=== PATIENT | male | born 1990 | race Caucasian/White ===

== ENCOUNTER 2016-10-27 23:53 | Emergency (ER) | payer MEDICAID ==
[~2016-10-27] VITALS: Ht 185.4 cm; Wt 68.0 kg
[2016-10-27 23:55] VITALS: BP_SYST 120
--- NOTE | 2016-10-27 23:55 | NUR ---
Patient to ER bed 8 to gown for evaluation. Side rails up.
--- NOTE | 2016-10-28 00:01 | NUR ---
Patient is stable in bed. States that he ate bad chicken last night since then had nausea, abdominal pain, and diarrhea. Abdomen is soft and round. Pain of 5/10. Denies vomiting. No other injuries/complaints per patient or as noted
--- NOTE | 2016-10-28 01:44 | NUR ---
ER Dr. Weeks at bedside examining patient.
[2016-10-28] MEDS ORDERED: ONDANSETRON 4 MG ODT TAB PO ONE (01:45)
[2016-10-28 02:00] VITALS: BP_SYST 107
--- NOTE | 2016-10-28 02:00 | NUR ---
Patient given written and verbal discharge instructions and verbalizes understanding. ER MD discussed with patient the results and treatment provided. Patient in stable condition. ID arm band removed. Rx of imodium and zofran given. Patient educated on pain management and to follow up with PMD 4-5 days. Pain Scale 0/10 Opportunity for questions provided and answered.
== END 2016-10-28 02:00 | disposition home or self-care (01) ==
LOC: SED 23:53
DX: R19.7 Diarrhea, unspecified (principal); R11.0 Nausea; R10.13 Epigastric pain
CPT/HCPCS: 99283; Q0162

== ENCOUNTER 2016-12-09 08:22 | Emergency (ER) | payer MEDICAID ==
[~2016-12-09] VITALS: Ht 188 cm; Wt 70.8 kg
[2016-12-09 08:33] VITALS: BP 145/93; PULSE 78; RESP 16; TEMP 97.4; O2SAT 98
--- NOTE | 2016-12-09 08:40 | NUR ---
Patient to ER bed 7 to gown for evaluation. Side rails up. Report given to Alycia SPICER.
--- NOTE | 2016-12-09 08:49 | NUR ---
Dr. Blake at the bedside evaluating Pt. Currently awaiting new orders.
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
[2016-12-09 08:53] LABS: BILIRUBIN,URINE NEGATIVE (NEGATIVE); BLOOD, URINE NEGATIVE (NEGATIVE); CLARITY/URINE CLEAR (CLEAR); COLOR,URINE YELLOW (YELLOW); GLUCOSE,URINE NEGATIVE (NEGATIVE); KETONES,URINE NEGATIVE (NEGATIVE); LEUKOCYTE ESTERASE ,URINE NEGATIVE (NEGATIVE); NITRITE, URINE NEGATIVE (NEGATIVE); PROTEIN URINE NEGATIVE (NEGATIVE)
[2016-12-09 08:57] LABS: BASOPHILS % (AUTO) 0.3 % (0.0-2.0); EOSINOPHILS # (AUTO) 0.2 K/uL (0.0-0.4); EOSINOPHILS % (AUTO) 2.8 % (0.0-4.0); HEMATOCRIT 47.1 % (36-54); HEMOGLOBIN 15.1 g/dL (14.0-18.0); LYMPHOCYTES # (AUTO) 1.9 K/uL (1.0-5.5); LYMPHOCYTES % (AUTO) 24.8 % (20.5-51.5); MEAN CORPUSCULAR HEMOGLOBIN 26 pg (27-31); MEAN CORPUSCULAR HGB CONC 32 % (32-36); MEAN CORPUSCULAR VOLUME 82 fL (79.0-98.0); MONOCYTES # (AUTO) 0.6 K/uL (0.0-1.0); MONOCYTES % (AUTO) 7.9 % (1.7-9.3); NEUTROPHILS # (AUTO) 4.9 K/uL (1.8-7.7); NEUTROPHILS % (AUTO) 64.2 % (40.0-70.0); PLATELET COUNT (AUTO) 225 K/uL (130-430); RED BLOOD CELL COUNT(AUTO) 5.72 MIL/uL (4.2-6.2); RED CELL DISTRIBUTION WIDTH 12.1 % (9.0-15.0); WHITE BLOOD COUNT (AUTO) 7.6 K/uL (4.8-10.8)
[2016-12-09 09:05] LABS: BARBITURATE, URINE NEGATIVE (NEG <=200); BENZODIAZEPINE, URINE NEGATIVE (NEG <=150); CANNABINOID, URINE NEGATIVE (NEG <=50); COCAINE, URINE POSITIVE (NEG <=150); METHAMPHETAMINES SCREEN,URINE NEGATIVE (NEG <=500); OPIATE, URINE NEGATIVE (NEG <=100); PHENCYCLIDINE SCREEN,URINE NEGATIVE (NEG <=25); UR TRICYCLIC ANTIDEPRESSANTS NEGATIVE (NEG <=300); URINE AMPHETAMINE POSITIVE (NEG <=500); URINE METHADONE NEGATIVE (NEG <=200); URINE OXYCODONE SCREEN NEGATIVE (NEG <=100); URINE PROPOXYPHENE SCREEN NEGATIVE (NEG <=300)
[2016-12-09 09:08] LABS: ANION GAP 7 (5-15); CALCIUM 9.3 mg/dL (8.4-11.0); CHLORIDE 101 mmol/L (98-107); CREATININE 0.85 mg/dL (0.55-1.30); GFR AFRICAN AMERICAN 141 mL/min (>90); GLUCOSE 104 mg/dL (70-99); POTASSIUM 3.7 mmol/L (3.5-5.1); SODIUM SERUM 136 mmol/L (136-145); UREA NITROGEN, BLOOD 10 mg/dL (8-21)
[2016-12-09 09:13] LABS: TOTAL BILIRUBIN 0.9 mg/dL (0.0-1.0)
[2016-12-09 09:15] LABS: ALANINE AMINOTRANSFERASE 27 U/L (12-78); ALBUMIN 4.7 g/dL (3.4-4.8); ALCOHOL, BLOOD 3 mg/dL (<10); ASPARTATE AMINOTRANSFERASE 16 U/L (10-37); TOTAL PROTEIN, SERUM 8.6 g/dL (6.4-8.3)
--- NOTE | 2016-12-09 09:15 | NUR ---
Dr. Blake at the bedside discussing plan of care. Currently awaiting orders.
[2016-12-09 09:16] VITALS: BP 92/52; PULSE 72; RESP 14; TEMP 98.9; O2SAT 99
[2016-12-09 09:19] LABS: SALICYLATE < 1 mg/dL (3-30)
--- NOTE | 2016-12-09 09:19 | NUR ---
Patient given written and verbal discharge instructions and verbalizes understanding. ER MD discussed with patient the results and treatment provided. Patient in stable condition. ID arm band removed. IV catheter removed intact and dressing applied, no active bleeding. Patient educated on pain management and to follow up with PMD. Pain Scale 3/10. Opportunity for questions provided and answered.
[2016-12-09 09:30] LABS: ACETAMINOPHEN < 1 ug/mL (1-30)
== END 2016-12-09 09:16 | disposition home or self-care (01) ==
LOC: SED 08:22
DX: F14.10 Cocaine abuse, uncomplicated (principal); R07.89 Other chest pain
CPT/HCPCS: 36415; 71010; 80053; 80307; 81003; 84484; 85025; 93005; 99285; G0480; G0481; G0482

== ENCOUNTER 2018-01-09 10:40 | Emergency (ER) | payer MEDICAID ==
[~2018-01-09] VITALS: Ht 188 cm; Wt 72.6 kg
[2018-01-09 10:46] VITALS: BP_SYST 166
--- NOTE | 2018-01-09 10:49 | NUR ---
Pt placed in bed 7
--- NOTE | 2018-01-09 10:55 | NUR ---
Pt complains of right flank pain that radiates to lower abdomen for the past 5 days, states "feels like something is pushing out of back." Denies n/v, diarrhea or fever. No other injuries/complaints per pt or noted.
--- NOTE | 2018-01-09 10:57 | NUR ---
ER at bedside examining patient.
--- NOTE | 2018-01-09 11:07 | NUR ---
Pt went to radiology in stable condition
--- NOTE | 2018-01-09 11:11 | NUR ---
Pt returned from radiology in stable condition
[2018-01-09 11:13] LABS: BILIRUBIN,URINE NEGATIVE (NEGATIVE); CLARITY/URINE CLEAR (CLEAR); COLOR,URINE YELLOW (YELLOW); GLUCOSE,URINE NEGATIVE (NEGATIVE); KETONES,URINE NEGATIVE (NEGATIVE); LEUKOCYTE ESTERASE ,URINE NEGATIVE (NEGATIVE); NITRITE, URINE NEGATIVE (NEGATIVE); PROTEIN URINE NEGATIVE (NEGATIVE); UROBILINOGEN,URINE 0.2 (0.2-1.0)
[2018-01-09 11:14] LABS: BLOOD, URINE TRACE (NEGATIVE)
[2018-01-09 11:19] LABS: BACTERIA,URINE RARE /HPF (None Seen); RBC,URINE 0-3 /HPF (0-3); WBC,URINE NONE SEEN /HPF (0-3)
[2018-01-09 11:20] LABS: MUCUS,URINE 1+ /LPF (None Seen)
[2018-01-09 11:30] LABS: BASOPHILS # (AUTO) 0.1 K/uL (0.0-0.2); BASOPHILS % (AUTO) 1.1 % (0.0-2.0); EOSINOPHILS # (AUTO) 0.3 K/uL (0.0-0.4); EOSINOPHILS % (AUTO) 2.7 % (0.0-4.0); HEMOGLOBIN 15.9 g/dL (14.0-18.0); LYMPHOCYTES # (AUTO) 2.8 K/uL (1.0-5.5); LYMPHOCYTES % (AUTO) 22.1 % (20.5-51.5); MEAN CORPUSCULAR HEMOGLOBIN 27 pg (27-31); MEAN CORPUSCULAR HGB CONC 33 % (32-36); MEAN CORPUSCULAR VOLUME 82 fL (79.0-98.0); MONOCYTES # (AUTO) 0.9 K/uL (0.0-1.0); MONOCYTES % (AUTO) 6.7 % (1.7-9.3); NEUTROPHILS # (AUTO) 8.6 K/uL (1.8-7.7); NEUTROPHILS % (AUTO) 67.4 % (40.0-70.0); PLATELET COUNT (AUTO) 245 K/uL (130-430); RED BLOOD CELL COUNT(AUTO) 5.86 MIL/uL (4.2-6.2); WHITE BLOOD COUNT (AUTO) 12.7 K/uL (4.8-10.8)
--- NOTE | 2018-01-09 11:34 | NUR ---
Assumed care of pt. Received report from Archana SPICER. Pt states R flank pain at 10/10, nontender to touch. Pt states he does not want any pain medication at this time.
[2018-01-09 11:42] LABS: CALCIUM 9.5 mg/dL (8.4-11.0); CREATININE 0.85 mg/dL (0.55-1.30); POTASSIUM 3.9 mmol/L (3.5-5.1)
[2018-01-09 11:46] LABS: ALBUMIN 4.5 g/dL (3.4-4.8); TOTAL BILIRUBIN 0.5 mg/dL (0.0-1.0)
[2018-01-09 11:50] LABS: BARBITURATE, URINE NEGATIVE (NEG <=200); BENZODIAZEPINE, URINE NEGATIVE (NEG <=150); CANNABINOID, URINE NEGATIVE (NEG <=50); COCAINE, URINE NEGATIVE (NEG <=150); METHAMPHETAMINES SCREEN,URINE NEGATIVE (NEG <=500); OPIATE, URINE NEGATIVE (NEG <=100); PHENCYCLIDINE SCREEN,URINE NEGATIVE (NEG <=25); UR TRICYCLIC ANTIDEPRESSANTS NEGATIVE (NEG <=300); URINE AMPHETAMINE NEGATIVE (NEG <=500); URINE METHADONE NEGATIVE (NEG <=200); URINE OXYCODONE SCREEN NEGATIVE (NEG <=100); URINE PROPOXYPHENE SCREEN NEGATIVE (NEG <=300)
[2018-01-09 12:19] VITALS: BP_SYST 143
--- NOTE | 2018-01-09 12:19 | NUR ---
Patient given written and verbal discharge instructions and verbalizes understanding. ER MD discussed with patient the results and treatment provided. Patient in stable condition. ID arm band removed. Rx of lactulose given. Patient educated on pain management and to follow up with PMD. Pain Scale 3. Opportunity for questions provided and answered.
== END 2018-01-09 12:19 | disposition home or self-care (01) ==
LOC: SED 10:40
DX: K59.00 Constipation, unspecified (principal); J45.909 Unspecified asthma, uncomplicated
CPT/HCPCS: 36415; 74021; 80053; 80307; 81000-TC; 83690-TC; 85025; 99285

== ENCOUNTER 2020-05-24 05:03 | Emergency (ER) | payer MEDICAID ==
[~2020-05-24] VITALS: Ht 188 cm; Wt 74.8 kg
[2020-05-24 05:10] VITALS: BP_SYST 129
--- NOTE | 2020-05-24 05:12 | NUR ---
Patient to ER bed 8 to gown for evaluation. Side rails up.
--- NOTE | 2020-05-24 05:14 | NUR ---
Patient came to ER with family. C/O abdominal pain x today. Patient had abdominal pain , diarrhea since midnight. A/O,X4, abdominal pain, nausea, diarrhea, pain rate 10/10.
--- NOTE | 2020-05-24 05:15 | NUR ---
ER at bedside examining patient.
[2020-05-24] MEDS ORDERED: KETOROLAC TROMETHAMINE 30 MG VIAL IVP ONE (05:30)
[2020-05-24] MEDS ORDERED: ONDANSETRON HCL 4 MG/2 ML VIAL IVP ONE (05:30)
[2020-05-24] MEDS ORDERED: NACL 0.9% 1,000 ML IV ONE ×2 (05:30→06:30)
[2020-05-24] MEDS ORDERED: DIPHENOXYLATE HCL/ATROP SULF 2.5 MG TAB PO ONE (05:30)
--- NOTE | 2020-05-24 05:30 | NUR ---
# 22 gauge angiocath placed to LAC. Use of asceptic technique. Opsite placed over site. Blood return noted. Blood for lab drawn from site. Flushed with 10 cc of normal saline. No evidence of infiltration noted. Patient tolerated well.
[2020-05-24 05:50] LABS: BILIRUBIN,URINE 1+ (NEGATIVE); BLOOD, URINE 1+ (NEGATIVE); CLARITY/URINE CLEAR (CLEAR); COLOR,URINE YELLOW (YELLOW); GLUCOSE,URINE NEGATIVE (NEGATIVE); KETONES,URINE NEGATIVE (NEGATIVE); LEUKOCYTE ESTERASE ,URINE NEGATIVE (NEGATIVE); NITRITE, URINE NEGATIVE (NEGATIVE); PROTEIN URINE 1+ (NEGATIVE); UROBILINOGEN,URINE 0.2 (0.2-1.0)
[2020-05-24 05:52] LABS: WHITE BLOOD COUNT (AUTO) 7.8 K/uL (4.8-10.8)
[2020-05-24 05:54] LABS: BACTERIA,URINE FEW /HPF (None Seen); WBC,URINE 0-3 /HPF (0-3)
[2020-05-24 05:56] LABS: BASOPHILS % (AUTO) 0.5 % (0.0-2.0); HEMATOCRIT 47.2 % (36-54); HEMOGLOBIN 15.9 g/dL (14.0-18.0); LYMPHOCYTES # (AUTO) 0.6 K/uL (1.0-5.5); LYMPHOCYTES % (AUTO) 7.1 % (20.5-51.5); MEAN CORPUSCULAR HEMOGLOBIN 28 pg (27-31); MEAN CORPUSCULAR HGB CONC 34 % (32-36); MEAN CORPUSCULAR VOLUME 82 fL (79.0-98.0); MONOCYTES # (AUTO) 0.6 K/uL (0.0-1.0); NEUTROPHILS # (AUTO) 6.7 K/uL (1.8-7.7); NEUTROPHILS % (AUTO) 85.4 % (40.0-70.0); PLATELET COUNT (AUTO) 188 K/uL (130-430); RED BLOOD CELL COUNT(AUTO) 5.77 MIL/uL (4.2-6.2); RED CELL DISTRIBUTION WIDTH 13.4 % (9.0-15.0)
[2020-05-24 06:03] LABS: CALCIUM 8.6 mg/dL (8.4-11.0); CREATININE 0.96 mg/dL (0.55-1.30); POTASSIUM 3.5 mmol/L (3.5-5.1)
[2020-05-24 06:09] LABS: ALBUMIN 4.4 g/dL (3.4-4.8); TOTAL BILIRUBIN 0.5 mg/dL (0.0-1.0)
--- NOTE | 2020-05-24 06:32 | NUR ---
Provided crakers, water as request, no vomitting.
--- NOTE | 2020-05-24 06:41 | NUR ---
Patient resting quietly. No acute distress noted. Vital signs within normal range.
--- NOTE | 2020-05-24 07:48 | NUR ---
Pt asleep, VSS
[2020-05-24 07:54] VITALS: BP_SYST 116
--- NOTE | 2020-05-24 07:54 | NUR ---
Patient given written and verbal discharge instructions and verbalizes understanding. ER MD discussed with patient the results and treatment provided. Patient in stable condition. ID arm band removed. IV catheter removed intact and dressing applied, no active bleeding. Rx of Zofran given. Patient educated on pain management and to follow up with PMD. Pain Scale 0/10. Opportunity for questions provided and answered. Medication side effect fact sheet provided.
== END 2020-05-24 07:54 | disposition home or self-care (01) ==
LOC: SED 05:03
DX: T62.8X1A Toxic effect of other specified noxious substances eaten as food, accidental (unintentional), initial encounter (principal); J45.909 Unspecified asthma, uncomplicated; Y92.89 Other specified places as the place of occurrence of the external cause
CPT/HCPCS: 36415; 80053; 81000; 85025; 96361; 96374; 96375; 99284; J1885; J2405; J7030

== ENCOUNTER 2020-06-03 12:08 | Emergency (ER) | payer MEDICAID ==
[~2020-06-03] VITALS: Ht 188 cm; Wt 73.5 kg
[2020-06-03 12:08] VITALS: BP_SYST 113
[2020-06-03] MEDS ORDERED: METOCLOPRAMIDE HCL 10 MG/2 ML VIAL IVP ONE (12:30)
[2020-06-03] MEDS ORDERED: NACL 0.9% 1,000 ML IV ONE (12:30)
[2020-06-03 12:43] LABS: BASOPHILS # (AUTO) 0.1 K/uL (0.0-0.2); BASOPHILS % (AUTO) 1.1 % (0.0-2.0); EOSINOPHILS # (AUTO) 0.4 K/uL (0.0-0.4); EOSINOPHILS % (AUTO) 4.4 % (0.0-4.0); HEMATOCRIT 46.5 % (36-54); HEMOGLOBIN 15.4 g/dL (14.0-18.0); LYMPHOCYTES # (AUTO) 3.3 K/uL (1.0-5.5); LYMPHOCYTES % (AUTO) 39.2 % (20.5-51.5); MEAN CORPUSCULAR HEMOGLOBIN 27 pg (27-31); MEAN CORPUSCULAR HGB CONC 33 % (32-36); MEAN CORPUSCULAR VOLUME 82 fL (79.0-98.0); MONOCYTES # (AUTO) 0.9 K/uL (0.0-1.0); MONOCYTES % (AUTO) 10.6 % (1.7-9.3); NEUTROPHILS # (AUTO) 3.7 K/uL (1.8-7.7); NEUTROPHILS % (AUTO) 44.7 % (40.0-70.0); PLATELET COUNT (AUTO) 270 K/uL (130-430); RED BLOOD CELL COUNT(AUTO) 5.64 MIL/uL (4.2-6.2); RED CELL DISTRIBUTION WIDTH 13.1 % (9.0-15.0); WHITE BLOOD COUNT (AUTO) 8.3 K/uL (4.8-10.8)
[2020-06-03 12:51] LABS: CALCIUM 8.4 mg/dL (8.4-11.0); CREATININE 0.98 mg/dL (0.55-1.30); POTASSIUM 3.2 mmol/L (3.5-5.1)
[2020-06-03 12:57] LABS: ALBUMIN 4.1 g/dL (3.4-4.8); TOTAL BILIRUBIN 0.6 mg/dL (0.0-1.0)
[2020-06-03] MEDS ORDERED: DIPHENHYDRAMINE INJ 50 MG/ML VIAL IVP ONE (13:00)
[2020-06-03] MEDS ORDERED: POTASSIUM CHLORIDE 20 MEQ/PKT PACKET PO ONE (15:00)
[2020-06-03 15:22] VITALS: BP_SYST 113
== END 2020-06-03 15:22 | disposition home or self-care (01) ==
LOC: SED 12:08
DX: R19.7 Diarrhea, unspecified (principal); R11.2 Nausea with vomiting, unspecified; J45.909 Unspecified asthma, uncomplicated
CPT/HCPCS: 36415; 74177; 76376; 80053; 81002; 83690; 85025; 86701; 86702; 93005; 96374; 96375; 99285; J7030

== ENCOUNTER 2021-06-25 12:44 | Emergency (ER) | payer OTHER, MEDICAID ==
[~2021-06-25] VITALS: Ht 188 cm; Wt 72.6 kg
--- NOTE | 2021-06-25 12:49 | NUR ---
Patient to ER bed 07 to gown for evaluation. Side rails up.
[2021-06-25 12:55] VITALS: BP_SYST 114
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
[2021-06-25 13:02] VITALS: BP_SYST 114
--- NOTE | 2021-06-25 13:10 | NUR ---
Dr Hernadez evaluating patient at bedside
[2021-06-25] MEDS ORDERED: NAPR-688 PO (13:22)
--- NOTE | 2021-06-25 13:35 | NUR ---
Patient given written and verbal discharge instructions and verbalizes understanding. ER MD discussed with patient the results and treatment provided. Patient in stable condition. ID arm band removed. Rx of Naproxen given. Patient educated on pain management and to follow up with PMD. Pain Scale 2/10 . Opportunity for questions provided and answered. Medication side effect fact sheet provided.
== END 2021-06-25 13:34 | disposition home or self-care (01) ==
LOC: SED 12:44
DX: S09.90XA Unspecified injury of head, initial encounter (principal); M54.6 Pain in thoracic spine; J45.909 Unspecified asthma, uncomplicated; Z79.899 Other long term (current) drug therapy; V49.49XA Driver injured in collision with other motor vehicles in traffic accident, initial encounter; Y93.89 Activity, other specified; Y92.89 Other specified places as the place of occurrence of the external cause; Y99.8 Other external cause status
CPT/HCPCS: 99282

== ENCOUNTER 2021-12-06 17:57 | Emergency (ER) | payer MEDICAID ==
[~2021-12-06] VITALS: Ht 188 cm; Wt 74.4 kg
[~2021-12-06 17:57] MED LIST: NAPR-688 PO
[2021-12-06 18:00] VITALS: BP_SYST 123
[2021-12-06] MEDS ORDERED: NACL 0.9% 1,000 ML IV ONE (18:15)
[2021-12-06 18:45] LABS: CLARITY/URINE CLEAR (CLEAR); COLOR,URINE YELLOW (YELLOW); GLUCOSE,URINE NEGATIVE (NEGATIVE); KETONES,URINE TRACE (NEGATIVE); LEUKOCYTE ESTERASE ,URINE NEGATIVE (NEGATIVE); PROTEIN URINE TRACE (NEGATIVE); UROBILINOGEN,URINE 0.2 (0.2-1.0)
[2021-12-06 18:54] LABS: BASOPHILS % (AUTO) 0.6 % (0.0-2.0); EOSINOPHILS # (AUTO) 0.2 K/uL (0.0-0.4); EOSINOPHILS % (AUTO) 4.6 % (0.0-4.0); HEMATOCRIT 43.9 % (36-54); HEMOGLOBIN 14.8 g/dL (14.0-18.0); LYMPHOCYTES # (AUTO) 1.3 K/uL (1.0-5.5); LYMPHOCYTES % (AUTO) 33.3 % (20.5-51.5); MEAN CORPUSCULAR HEMOGLOBIN 28 pg (27-31); MEAN CORPUSCULAR HGB CONC 34 % (32-36); MEAN CORPUSCULAR VOLUME 82 fL (79.0-98.0); MONOCYTES # (AUTO) 0.6 K/uL (0.0-1.0); MONOCYTES % (AUTO) 14.7 % (1.7-9.3); NEUTROPHILS # (AUTO) 1.8 K/uL (1.8-7.7); NEUTROPHILS % (AUTO) 46.8 % (40.0-70.0); PLATELET COUNT (AUTO) 194 K/uL (130-430); RED BLOOD CELL COUNT(AUTO) 5.33 MIL/uL (4.2-6.2); RED CELL DISTRIBUTION WIDTH 13.6 % (9.0-15.0); WHITE BLOOD COUNT (AUTO) 3.9 K/uL (4.8-10.8)
[2021-12-06 19:01] LABS: CREATININE 1.01 mg/dL (0.55-1.30); POTASSIUM 3.5 mmol/L (3.5-5.1)
[2021-12-06 19:06] LABS: BLOOD, URINE TRACE (NEGATIVE); NITRITE, URINE NEGATIVE (NEGATIVE)
[2021-12-06 19:07] LABS: BILIRUBIN,URINE 1+ (NEGATIVE)
[2021-12-06 19:08] LABS: ALBUMIN 3.8 g/dL (3.4-4.8); TOTAL BILIRUBIN 0.5 mg/dL (0.0-1.0)
[2021-12-06 19:09] LABS: BACTERIA,URINE FEW /HPF (None Seen); MUCUS,URINE 2+ /LPF (None Seen); RBC,URINE 0-3 /HPF (0-3); WBC,URINE NONE SEEN /HPF (0-3)
[2021-12-06] MEDS ORDERED: LOM2.5 PO (19:55)
[2021-12-06] MEDS ORDERED: CIPR500T5 PO (19:55)
[2021-12-06] MEDS ORDERED: DIPHENOXYLATE HCL/ATROP SULF 2.5 MG TAB PO ONE (20:15)
[2021-12-06 20:42] VITALS: BP_SYST 109
== END 2021-12-06 20:42 | disposition home or self-care (01) ==
LOC: SED 17:57
DX: K52.9 Noninfective gastroenteritis and colitis, unspecified (principal); Z79.899 Other long term (current) drug therapy; Z20.822 Contact with and (suspected) exposure to COVID-19
CPT/HCPCS: 36415; 80053; 81000; 83690; 85025; 87426; 96360; 99283; J7030

== ENCOUNTER 2023-09-19 05:12 | Emergency (ER) | payer MEDICAID ==
[~2023-09-19] VITALS: Ht 188 cm; Wt 76.2 kg
[~2023-09-19 05:12] MED LIST changes: +CIPR500T5 PO; +LOM2.5 PO
[2023-09-19 05:31] VITALS: BP_SYST 124; PULSE 75; RESP 16; TEMP 97.8; O2SAT 99
[2023-09-19] MEDS ORDERED: IVER3TAB PO (05:48)
[2023-09-19 05:58] VITALS: BP_SYST 124; PULSE 75; RESP 16; TEMP 97.8; O2SAT 99
== END 2023-09-19 05:55 | disposition home or self-care (01) ==
LOC: SED 05:12
DX: B86 Scabies (principal); L29.9 Pruritus, unspecified; J45.909 Unspecified asthma, uncomplicated; Z79.899 Other long term (current) drug therapy
CPT/HCPCS: 99283

== ENCOUNTER 2024-04-11 23:54 | Emergency (ER) | payer MEDICAID ==
[~2024-04-11] VITALS: Ht 188 cm; Wt 77.1 kg
[~2024-04-11 23:54] MED LIST changes: +IVER3TAB PO
[2024-04-12 00:12] VITALS: BP_SYST 121; PULSE 80; RESP 18; TEMP 98.1; O2SAT 98
[2024-04-12] MEDS ORDERED: VALA10002 PO (00:21)
== END 2024-04-12 00:24 | disposition home or self-care (01) ==
LOC: SED 23:54
DX: L42 Pityriasis rosea (principal); J45.909 Unspecified asthma, uncomplicated; Z79.624 Long term (current) use of inhibitors of nucleotide synthesis; Z79.2 Long term (current) use of antibiotics; Z79.899 Other long term (current) drug therapy
CPT/HCPCS: 99283